=== PATIENT | female | born 1985 | race Caucasian/White ===

== ENCOUNTER 2018-03-24 12:25 | Inpatient (IN) | payer BC ==
[2018-03-24] MEDS ORDERED: EPSOM SALT 454 GM TP PRN (12:56)
[2018-03-24] MEDS ORDERED: LR 1,000 ML IV PRN (12:56)
[2018-03-24] MEDS ORDERED: MISOPROSTOL 200 MCG TAB PR PRN (12:56)
[2018-03-24] MEDS ORDERED: IBUPROFEN 600 MG TAB PO PRN (12:56)
[2018-03-24] MEDS ORDERED: TERBUTALINE SULFATE 1 MG/ML VIAL IV PRN (12:56)
[2018-03-24] MEDS ORDERED: OLIVE OIL 118 ML BTL MISC PRN (12:56)
[2018-03-24] MEDS ORDERED: OXYTOCIN/RINGERS LACTATE 1,000 ML IV PRN (12:56)
[2018-03-24] MEDS ORDERED: LIDOCAINE 1% 300 MG/30 ML SDV SC PRN (12:56)
[2018-03-24 13:18] LABS: PLATELET COUNT 216 10^3/uL (150-400)
[2018-03-24] MEDS ORDERED: LIDOCAINE 1% 300 MG/30 ML SDV ONE (14:16)
[2018-03-24] MEDS ORDERED: OLIVE OIL 118 ML BTL ONE (14:17)
[2018-03-24] MEDS ORDERED: AMMONIA AROMATIC 1 EACH AMP IH ONE (14:17)
[2018-03-24] MEDS ORDERED: MISOPROSTOL 200 MCG TAB ONE (14:18)
[2018-03-24] MEDS ORDERED: OXYTOCIN 10 UNIT/ML VIAL ONE (14:18)
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
--- NOTE | 2018-03-24 16:18 | OBDEL ---
Info Type: Vaginal Presentation at Delivery: Vertex L&D Analgesia/Anesthesia Type: None, Local (1% plain Lidocaine) GBS+: No Intrapartum Medications: Discontinued Medications Generic Name Dose Route Start Last Admin Trade Name Preeti PRN Reason Stop Dose Admin Ibuprofen 600 mg 03/24/18 12:56 03/24/18 16:09 Motrin PO 600 mg ONCE PRN Administration post , pain - Hospital Course Intrapartum: 03/24/18 16:14 IUP @ 40 weeks with SROM-clear in active labor. GBS negative. Indications for Delivery: Spontaneous Labor Vaginal Delivery - Delivery Provider Delivery Physician/CNM: Annie Lugo - Labor and Delivery Onset of Contractions Date: 03/24/18 Onset of Contractions Time: 03:30 Onset of Contractions Type: Spontaneous Rupture of Membranes Date: 03/24/18 Rupture of Membranes Time: 03:30 Rupture of Membranes Type: Spontaneous Amniotic Fluid Color: Clear Dilation Complete Date: 03/24/18 Dilation Complete Time: 14:40 Placenta Delivery Date: 03/24/18 Placenta Delivery Time: 15:39 Total Hours of Labor: 12 Laceration: 2nd Degree Repair: 3-0, Vicryl Vaginal Sponge Count Correct: Yes Vaginal Needle Count Correct: Yes Vaginal Sweep Performed: Yes EBL: 350 cc Delivery Events: None Delivery Comment: A viable male infant born over intact perineum with 8 and 9 Apgars in cephalic presentation, SANTO. Cord clamping delayed x 2 1/2 min per request. Placenta delivered intact spontaneously intact with 3-vc. Inspection revealed 2 degree lac repaired under local-1% plain lidocaine with 3-0 Vicryl. No complications. [employer] Data STEPHANIA: 03/24/18 Gestational Age: 40 week(s) and 0 day(s) [place] Delivery Date: 03/24/18 Delivery Time: 15:32 Sex of : Male Score (1 Min): 8 Score (5 Min): 9 ICD10 Worksheet Patient Problems: Problems Problem Status Onset Normal labor and delivery Acute ROM (rupture of membranes), premature Acute (spontaneous vaginal delivery) Acute - ICD10 Problem Qualifiers (1) ROM (rupture of membranes), premature (2) (spontaneous vaginal delivery) (3) Normal labor and delivery
[2018-03-24] MEDS ORDERED: SIMETHICONE 80 MG TAB CHEW PO PRN (16:19)
[2018-03-24] MEDS ORDERED: DOCUSATE SODIUM 100 MG CAP PO PRN (16:19)
[2018-03-24] MEDS ORDERED: HYDROCORTISONE 0.5% CREAM TP PRN (16:19)
[2018-03-24] MEDS ORDERED: HYDROCODONE/APAP 5/325 TAB PO PRN (16:19)
[2018-03-24] MEDS: ACETAMINOPHEN 325 MG TAB PO SCH ×2 (20:08→20:52)
[2018-03-24] MEDS: IBUPROFEN 600 MG TAB PO SCH (22:22)
[2018-03-25] MEDS: ACETAMINOPHEN 325 MG TAB PO SCH ×4 (03:54→20:47)
[2018-03-25] MEDS: IBUPROFEN 600 MG TAB PO SCH ×3 (04:01→15:47)
--- NOTE | 2018-03-25 09:08 | OBPP ---
Progress Note Assessment/Plan: Assessment: PPD 1 s/p Plan: Routine care 03/25/18 09:05 Subjective/ Course: 03/25/18 09:08 Pt doing well. Baby had some good attempts with BF through noc. Pt hasn't slept much. urination fine. Bld has slowed. Soreness manageable with ice and ibuprofen. No HAs or n/v. Disc b/p follow up this week in office Objective: 03/24/18 12:57 03/24/18 13:30 Patient ABO/Rh A POSITIVE 03/24/18 12:57 Uric Acid 8.1 mg/dL (2.5-6.8) H 03/24/18 13:30 Total Bilirubin 0.5 mg/dL (0.1-1.4) 03/24/18 13:30 Conjugated Bilirubin 0.1 mg/dL (0.0-0.5) 03/24/18 13:30 Unconjugated Bilirubin 0.4 mg/dL (0.0-1.1) 03/24/18 13:30 AST 42 IU/L (14-46) 03/24/18 13:30 ALT 42 IU/L (9-52) 03/24/18 13:30 Lactate Dehydrogenase 774 IU/L (313-618) H 03/24/18 13:30 Temp Pulse Resp BP Pulse Ox 37.1 C 85 16 123/69 H 94 03/24/18 22:27 03/24/18 22:27 03/24/18 22:27 03/24/18 22:27 03/24/18 22:27 Uterine Position/Fundal Height: Umbilicus -2 Uterine Tone: Firm Physical Exam - Physical Exam Abdomen: non-tender, soft, other (FF at umb -2, normal lochia) Extremities: non-tender, pedal edema (none) Skin: normal color, warm/dry Neuro/Psych: alert, normal mood/affect
[2018-03-26] MEDS: ACETAMINOPHEN 325 MG TAB PO SCH ×3 (03:21→10:26)
[2018-03-26] MEDS: IBUPROFEN 600 MG TAB PO SCH ×3 (03:21→15:31)
[2018-03-26 12:43] VITALS: BP 126/79
--- NOTE | 2018-03-26 13:22 | OBPP ---
Progress Note Assessment/Plan: Assessment: 1) s/p PPD # 2 - pt is stable 2) Elevated BPs Plan: BPs labile, as high as 141/91; pt is asymptomatic at this time Plan for d/c home today Instructions reviewed with pt No Rx given Cont PNV and colace Pelvic rest RTO in 4 days for BP check, 4 weeks for mood check and 6 weeks for pp visit 03/26/18 13:23 Subjective/ Course: 03/25/18 09:08 Pt doing well. Baby had some good attempts with BF through noc. Pt hasn't slept much. urination fine. Bld has slowed. Soreness manageable with ice and ibuprofen. No HAs or n/v. Disc b/p follow up this week in office 03/26/18 13:18 Pt seen and examined. Doing well with no complaints. Mild cramping, relief with Motrin. Pt is OOB, manjit regular diet, voiding and passing flatus. No BM yet. Mod lochia. BF well so far. Denies any HAs, visual changes or RUQ pain. Baby boy - Cameron. Objective: 03/24/18 12:57 03/24/18 13:30 Patient ABO/Rh A POSITIVE 03/24/18 12:57 Uric Acid 8.1 mg/dL (2.5-6.8) H 03/24/18 13:30 Total Bilirubin 0.5 mg/dL (0.1-1.4) 03/24/18 13:30 Conjugated Bilirubin 0.1 mg/dL (0.0-0.5) 03/24/18 13:30 Unconjugated Bilirubin 0.4 mg/dL (0.0-1.1) 03/24/18 13:30 AST 42 IU/L (14-46) 03/24/18 13:30 ALT 42 IU/L (9-52) 03/24/18 13:30 Lactate Dehydrogenase 774 IU/L (313-618) H 03/24/18 13:30 Temp Pulse Resp BP Pulse Ox 37.0 C 83 16 126/79 H 99 03/26/18 08:00 03/26/18 08:00 03/26/18 08:00 03/26/18 08:00 03/25/18 20:00 Uterine Position/Fundal Height: Umbilicus -2 Uterine Tone: Firm Physical Exam - Physical Exam General Appearance: WD/WN, alert, no apparent distress Respiratory: lungs clear, normal breath sounds Cardiac/Chest: regular rate, rhythm Abdomen: normal bowel sounds, non-tender, soft, flatus (+) Extremities: non-tender, normal inspection DTR- Lower Extremities: Plantar (R): 2+, Plantar (L): 2+ Skin: normal color, warm/dry Neuro/Psych: alert, normal mood/affect, oriented x 3
--- NOTE | 2018-03-26 13:25 | OBGCSDC ---
General Delivery Information - General Info : 1 Para: 1 Abortions: 0 Type: Vaginal L&D Analgesia/Anesthesia Type: None Admission Date: 03/24/18 Labs: Patient ABO/Rh A POSITIVE 03/24/18 12:57 Hct 44.8 % (38.0-47.0) 03/24/18 12:57 - Hospital Course Intrapartum: 03/24/18 16:14 IUP @ 40 weeks with SROM-clear in active labor. GBS negative. : 03/25/18 09:08 Pt doing well. Baby had some good attempts with BF through noc. Pt hasn't slept much. urination fine. Bld has slowed. Soreness manageable with ice and ibuprofen. No HAs or n/v. Disc b/p follow up this week in office 03/26/18 13:18 Pt seen and examined. Doing well with no complaints. Mild cramping, relief with Motrin. Pt is OOB, manjit regular diet, voiding and passing flatus. No BM yet. Mod lochia. BF well so far. Denies any HAs, visual changes or RUQ pain. Baby boy - Cameron. Vaginal - Delivery Provider Delivery Physician/CNM: Annie Lugo - Diagnosis Labor: Spontaneous Rupture of Membranes Type: Spontaneous Amniotic Fluid Color: Clear Laceration: 2nd Degree Repair: 3-0, Vicryl Delivery Events: None - Delivery EBL: 350 cc Data STEPHANIA: 03/24/18 Gestational Age: 40 week(s) and 2 day(s) [place] Delivery Date: 03/24/18 Delivery Time: 15:32 Sex of Infant: Male Weight (gm): 3472 kg Score (1 Min): 8 Score (5 Min): 9 Discharge Information - Discharge Information Condition: Good Instruction/Follow Up: See Instruction Sheet, One Week (4 days for a BP check), Four Weeks (mood check), Six Weeks ( visit)
== END 2018-03-26 13:30 | disposition home or self-care (01) | DRG 779 ==
LOC: FLD 12:25 → FOB 21:11
PROVIDERS: ADMIT Obstetrics & Gynecology; ATTEND Obstetrics & Gynecology
PROC: 10E0XZZ Delivery of Products of Conception, External Approach (ICD-10-PCS; principal; 2018-03-24)
PROC: 0KQM0ZZ Repair Perineum Muscle, Open Approach (ICD-10-PCS; principal; 2018-03-24)
DX: O07.1 Delayed or excessive hemorrhage following failed attempted termination of pregnancy (principal); O28.9 Unspecified abnormal findings on antenatal screening of mother; R03.0 Elevated blood-pressure reading, without diagnosis of hypertension; Z3A.40 40 weeks gestation of pregnancy; Z37.0 Single live birth
CPT/HCPCS: J2590

== ENCOUNTER → 2018-06-07 | Outpatient (CLI) | payer BC | LOC: FIMAGING 15:40 | PROVIDERS: ATTEND Family Medicine | DX: M79.661 Pain in right lower leg (principal) ==